=== PATIENT | female | born 1985 | race American Indian/Alaskan Native ===

== ENCOUNTER 2020-06-18 00:17 | Emergency (ER) | payer MEDICAID ==
[2020-06-18 01:23] VITALS: BP 124/86
--- NOTE | 2020-06-18 01:41 | Emergency Department Report ---
Chief Complaint: Skin Rash Stated Complaint: RASH Time Seen by Provider: 06/18/20 01:36 - HPI History of Present Illness: The patient was evaluated in the emergency department for symptoms described in the history of present illness. He/she was evaluated in the context of the global COVID-19 pandemic, which necessitated consideration that the patient might be at risk for infection with the virus that causes COVID-19. Institutional protocols and algorithms that pertain to the evaluation of patients at risk for COVID-19 are in a state of rapid change based on information released by regulatory bodies including the CDC and federal and state organizations. These policies and algorithms were followed during the patient's care in the emergency department. Please note that these policies, procedures and recommendations changed on a rapid basis. 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 Patient states that the rash is itchy and is on her hands and her inner forearm. Patient states that she has had this before. She states that at the time she was able to put Vaseline on it and it got better. She states today that she put Vaseline on it but it burned. Patient planes of itchiness and mild redness. Patient denies any fever chills no blisters no drainage from the rash. - Exam Vital Signs: Vital Signs 06/18/20 01:09 Temperature 97.6 F Pulse Rate 85 Respiratory 18 Rate Blood Pressure 124/86 O2 Sat by Pulse 96 Oximetry Physical Exam: Alert and oriented x3 no acute distress nontoxic in appearance Nonlabored breathing no accessory muscles use Dry erythematous rash on both hands and inner forearm. Ambulatory without difficulties MSE screening note: Focused history and physical exam performed. 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 Patient states that the rash is itchy and is on her hands and her inner forearm. Patient states that she has had this before. She states that at the time she was able to put Vaseline on it and it got better. She states today that she put Vaseline on it but it burned. Patient planes of itchiness and mild redness. Patient denies any fever chills no blisters no drainage from the rash. Discussed with patient she should avoid using the core male crust. She can use qigk-ovn-urtuaos hydrocortisone cream. And to follow-up with an rehabilitation therapist. She can take Benadryl to help her sleep tonight from the itchiness. ED Disposition for MSE Clinical Impression: Contact dermatitis Disposition: MED SCREENING EXAM-LEFT Is pt being admited?: No Condition: Stable Instructions: Contact Dermatitis, [id number] Additional Instructions: Try ujnz-pxk-[id number] hydrocortisone cream 2-3 times a day follow-up at a rehabilitation therapist. Avoid using the corn male Referrals: PRIMARY CARE, [Primary Care Provider] - 3-5 Days [facility] [Provider Group] - 3-5 Days Forms: Work/School Release Form(ED)
== END 2020-06-18 01:45 | disposition left against medical advice (07) ==
LOC: ED 00:17
DX: L25.9 Unspecified contact dermatitis, unspecified cause (principal); Z53.21 Procedure and treatment not carried out due to patient leaving prior to being seen by health care provider

== ENCOUNTER 2021-03-12 01:05 | Emergency (ER) | payer SELFPAY ==
[2021-03-12 02:02] VITALS: BP 153/100
== END 2021-03-12 04:39 | disposition home or self-care (01) ==
LOC: ED 01:05
DX: S93.402A Sprain of unspecified ligament of left ankle, initial encounter (principal); S96.912A Strain of unspecified muscle and tendon at ankle and foot level, left foot, initial encounter; E11.9 Type 2 diabetes mellitus without complications; J45.909 Unspecified asthma, uncomplicated; Z79.899 Other long term (current) drug therapy; Z88.6 Allergy status to analgesic agent; Z88.8 Allergy status to other drugs, medicaments and biological substances; X58.XXXA Exposure to other specified factors, initial encounter; Y93.89 Activity, other specified; Y92.89 Other specified places as the place of occurrence of the external cause; Y99.0 Civilian activity done for income or pay